=== PATIENT | female | born 1975 | race Caucasian/White ===

== ENCOUNTER 2017-04-05 15:49 | Emergency (ER) | payer BC, SELFPAY ==
[2017-04-05] MEDS ORDERED: NO HOME MEDICATION XX (16:05)
[2017-04-05 16:27] LABS: URINE BILIRUBIN NEGATIVE (NEG); URINE BLOOD MODERATE (NEG); URINE GLUCOSE (UA) NEGATIVE (NEG); URINE KETONE NEGATIVE (NEG); URINE LEUKOCYTE ESTERASE POSITIVE (NEG); URINE NITRITE NEGATIVE (NEG); URINE PROTEIN NEGATIVE (NEG)
[2017-04-05 16:28] LABS: URINE APPEARANCE CLEAR; URINE COLOR YELLOW
[2017-04-05 16:42] LABS: URINE BACTERIA 2+; URINE EPITHELIAL CELLS 0-3 /[HPF] (0-10)
[2017-04-05 16:46] LABS: BASO % 0.8 % (0-2); EOS % 0.4 % (0-7); HCT-HEMATOCRIT 32.1 % (34.0-49.0); HGB-HEMOGLOBIN 10.7 gm/dl (12.0-15.5); LYMPH % 20.5 % (20-45); MCH (MEAN CORPUSCULAR HGB) 25.9 pg (28.0-32.0); MCHC MEAN CORPUSCULAR HGB CONC 33.3 % (32.0-36.0); MCV (MEAN CELL VOLUME) 77.7 fl (82.0-96.0); MEAN PLATELET VOLUME 9.7 cmc (9.4-12.4); MONO % 7.4 % (0-12); MONOCYTE ABSOLUTE COUNT 0.4 tho/cmm (0.0-1.2); NEUTROPHIL ABSOLUTE COUNT 3.5 tho/cmm (1.6-8.0); NEUTROPHIL-AUTOMATED 3.5 tho/cmm (1.6-8.0); NEUTROPHILS % 70.9 % (40-80); PLATELET COUNT 322 tho/cmm (150-450); RED BLOOD COUNT 4.13 mil/cmm (4.00-5.20); RED CELL DISTRIBUTION WIDTH 14.3 % (12.4-16.4)
[2017-04-05 16:58] LABS: PREGNANCY-SERUM NEGATIVE (NEGATIVE)
[2017-04-05 17:01] LABS: ALBUMIN 3.7 g/dl (3.5-5.0); ALKALINE PHOSPHATASE 74 U/L (33-138); ALT/SGPT 45 U/L (12-78); ANION GAP 12 mmol/L (0-20); AST/SGOT 36 U/L (10-40); BILIRUBIN,TOTAL 0.6 mg/dl (0-1.5); BLOOD UREA NITROGEN 11 mg/dl (6-24); C-REACTIVE PROTEIN 0.6 mg/dl (0-0.9); CALCIUM 8.4 mg/dl (8.5-10.5); CARBON DIOXIDE-VENOUS 26 mmol/L (22-32); CHLORIDE 109 mmol/l (96-110); CREATININE 0.76 mg/dl (0.50-1.10); GLUCOSE 93 mg/dL (70-110); SODIUM 143 mmol/L (135-145); eGFR VALUE FOR BLACK >90 mL/Min
[2017-04-05] MEDS ORDERED: CIPRO500 M2 PO (18:26)
[2017-04-05] MEDS ORDERED: FLAGYL500 M1 PO (18:26)
== END 2017-04-05 18:38 ==
LOC: EDMED 15:49
PROVIDERS: Emergency Medicine
DX: K52.9 Noninfective gastroenteritis and colitis, unspecified (principal); K62.5 Hemorrhage of anus and rectum; D64.9 Anemia, unspecified; N39.0 Urinary tract infection, site not specified; K80.80 Other cholelithiasis without obstruction; N83.202 Unspecified ovarian cyst, left side
CPT/HCPCS: J7030; Q9967